=== PATIENT | male | born 1975 | race Two or more races ===

== ENCOUNTER 2018-09-07 13:32 | Emergency (ER) | payer SELFPAY ==
[~2018-09-07] VITALS: Ht 175.3 cm; Wt 75.0 kg
[2018-09-07 13:35] VITALS: BP 123/84
== END 2018-09-07 14:31 | disposition home or self-care (01) ==
LOC: ER 13:32
DX: Z00.00 Encounter for general adult medical examination without abnormal findings (principal)
CPT/HCPCS: 99283